=== PATIENT | male | born 1970 | race Caucasian/White ===

== ENCOUNTER 2018-02-07 10:58 | Emergency (ER) | payer BC, MEDICAID ==
[2018-02-07 11:06] VITALS: BP 165/101
--- NOTE | 2018-02-07 11:56 | EDPHY ---
General Time Seen by Provider: 02/07/18 11:43 Narrative: CHIEF COMPLAINT: Left foot and toe pain HISTORY OF PRESENT ILLNESS: Patient presents with complaints of left foot and toe pain after injury last night. He states that he was walking his home when he stepped awkwardly and his sandals. He developed sudden onset of pain in the left foot involving the great toe, 2nd toe and 3rd toe. This was at the MTP joint. He states that the great toe "looks kind of funny with something sticking out." He states that he pressed on it, and that it looked much better. Since then he has had pain when ambulatory. It is moderate to severe with weight-bearing. Minimal at rest. Does not radiate. No numbness or tingling. No laceration or puncture. No redness, warmth or fever. 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 Nephrolithiasis PAST SURGICAL HISTORY: ACL repair SOCIAL HISTORY: Nonsmoker. Lives independently with his spouse. FAMILY HISTORY: Noncontributory EXAMINATION: General Appearance: Alert, no distress Cardiovascular: Symmetric DP pulses 2+. Symmetric PT pulses 2+. Good signs of perfusion the left foot. Neurological: A&O, light sensory symmetric in lower extremities, great toe strength symmetric. Skin: Warm and dry, no rash. There is no erythema, cellulitis abscess or induration of the left lower extremity or foot. No laceration or puncture Extremities: Tenderness of the left foot over this 1st, 2nd and 3rd MTP joints. No deformity. No tenderness of the midfoot centrally. No tenderness of the left calcaneus. Range of motion lower extremities symmetric. No evidence of DVT. Psychiatric: Mood and affect normal DIFFERENTIAL DIAGNOSES: Including but not limited to sprain, strain, fracture, subluxation, gout MDM: 11:45 a.m. Acute sprain to the left foot with no fracture dislocation on x-ray as read by me. There is no tenderness of the knee, reagan or ankle. I do not appreciate any evidence of gout, cellulitis or DVT. He is ambulatory. He will be placed in a postoperative shoe and discharged with outpatient orthopedic follow-up. We discussed ED precautions. We discussed rest, ice and elevation. We discussed the patient's resting oxygenation. He informs me this is chronic and he is well aware of this. He has been followed closely by primary care physician for this. SUPERVISION: This patient was independently evaluated without direct involvement of or examination by the attending physician. - Diagnostics Imaging Results: Imaging Impressions Foot X-Ray 02/07/18 11:07 Impression: 1. No acute osseous abnormality seen left foot. 2. Mild degenerative changes first MTP joint with small bunion. - History Smoking Status: Never smoked - Objective Vital Signs: Initial Vital Signs Temperature (C) 98.4 F 02/07/18 11:02 Heart Rate 85 02/07/18 11:02 Respiratory Rate 20 02/07/18 11:02 Blood Pressure 165/101 H 02/07/18 11:02 O2 Sat (%) 85 L 02/07/18 11:02 O2 Delivery Mode Room Air O2 (L/minute) 2 Allergies/Adverse Reactions: No Known Allergies Allergy (Verified 02/07/18 11:01) Departure - Departure Disposition: Home, Routine, Self-Care Clinical Impression: Sprain of foot, left Qualifiers: Encounter type: initial encounter Qualified Code(s): S93.602A - Unspecified sprain of left foot, initial encounter Sprain of toe, great, left Qualifiers: Encounter type: initial encounter Qualified Code(s): S93.502A - Unspecified sprain of left great toe, initial encounter Sprain of toe, second, left Qualifiers: Encounter type: initial encounter Qualified Code(s): S93.505A - Unspecified sprain of left lesser toe(s), initial encounter Condition: Good Instructions: Foot Sprain (ED) Additional Instructions: 1. Contact orthopedist on-call for outpatient care 2. Postoperative shoe as needed for comfort. Weightbearing as tolerated 3. ED precautions for worsening pain, numbness, tingling, redness, warmth or fever Referrals: MYRIAM MIRZA [Primary Care Provider] - As per Instructions Eduard Prasad MD [Medical Doctor] - As per Instructions
== END 2018-02-07 12:34 | disposition home or self-care (01) ==
DX: S93.602A Unspecified sprain of left foot, initial encounter (principal); S93.505A Unspecified sprain of left lesser toe(s), initial encounter; W19.XXXA Unspecified fall, initial encounter
CPT/HCPCS: L4386